=== PATIENT | female | born 1955 | race Caucasian/White ===

== ENCOUNTER 2019-07-11 07:16 | Outpatient (CLI) | payer OTHER ==
--- NOTE | 2019-07-11 09:36 | Ultrasound Report ---
Reason: ABDOMINAL BRUIT Procedure Date: 07/11/2019 Accession Number: [id number] / [id number] Procedure: US - Arterial Visceral Complete CPT Code: FULL RESULT: EXAM: MESENTERIC/CELIAC ARTERY DOPPLER ULTRASOUND EXAM DATE: 07/11/2019 08:32 AM. CLINICAL HISTORY: Abdominal bruit. COMPARISON: None. TECHNIQUE: Real-time sonographic vascular imaging was performed by the wet machine tender through the mesenteric arterial system with a linear transducer utilizing color-flow, Doppler flow and spectral analysis. Multiple manufacturers representative static images were saved for review. FINDINGS: The sampled celiac axis including hepatic and splenic arteries is patent by color Doppler with expected brisk systolic upstrokes on spectral Doppler. The sampled superior and inferior mesenteric axes are patent by color Doppler with expected brisk arterial upstrokes on spectral Doppler. Distal GEMA is not seen, felt to be technical factor. The celiac artery demonstrates antegrade flow throughout diastole. Diastolic flow is less pronounced in the superior and inferior mesenteric axis. The following peak systolic velocities are obtained in centimeters per second. Aorta: 68cm/sec. Celiac [place]: Origin: 218 cm/sec. Proximal: 247 cm/sec. Mid: 266 cm/sec. Distal: 199 cm/sec. Hepatic Artery: 88 cm/sec. Splenic Artery: 66 cm/sec. Superior Mesenteric Artery Origin: 76 cm/sec. Proximal: 236 cm/sec. Mid: 154 cm/sec. Distal: 105 cm/sec. Inferior Mesenteric Artery: Origin: 65 cm/sec. Proximal: 181 cm/sec. Mid: 168 cm/sec. Distal: Not seen. IMPRESSION: Patent mesenteric arteries as sampled with arterial waveforms within normal limits. Prominent velocities in the proximal to mid celiac artery compared to the aorta are felt to be more likely related to vessel tortuosity than genuine stenosis given preservation of downstream brisk arterial upstrokes and no evidence of tardus parvus flow in the hepatic or splenic arteries. If there is additional clinical concern warranting further workup, CTA of the abdomen would represent a neck step though these ultrasound findings alone do not necessitate further imaging. [facility]
== END 2019-07-11 07:17 | disposition home or self-care (01) ==
LOC: DI 07:16
PROVIDERS: ATTEND Internal Medicine Gastroenterology
DX: R09.89 Other specified symptoms and signs involving the circulatory and respiratory systems (principal)
CPT/HCPCS: 93975